=== PATIENT | male | born 1940 | race Caucasian/White ===

== ENCOUNTER → 2016-12-07 | Outpatient (CLI) | payer MEDICARE, BC ==
--- NOTE | 2016-12-07 11:57 | MR ---
MRI of the brain with and without contrast HISTORY: Headaches. TECHNIQUE: T1-weighted sagittal, T2, FLAIR, and diffusion axial, postcontrast T1 axial and coronal vi ews of the brain are submitted. CONTRAST: 18 mL MultiHance FINDINGS: Craniocervical junction maintained. There is a partially empty sella turcica. Confluent and diffuse areas of abnormal signal throughout t he white matter are noted bilaterally. Findings are nonspecific but most likely in the basis of remot e microvascular ischemia. No enhancing mass or mass effect. There appears to be an area of increased signal involving the corpus callosum posteriorly adjacent to the atrium of the right lateral ventricle. No enhancing mass or evidence of enhancement. No mass eff ect upon the adjacent atrium. This could been the basis of a subacute to chronic area of ischemia. Ventricular system dilation is greater centrally which raises the possibility of normal pressure hydr ocephalus. IMPRESSION: 1. There is an area of intermediate increased signal within the splenium of the corpus callosum on th e right suggestive of an area subacute to chronic infarct. No enhancing mass or enhancement of the re gion. Neoplasm felt less likely given the lack of enhancement. 2. Extensive nonspecific white matter changes and degenerative changes. Findings are felt to be most typical remote microvascular ischemia. Greater central dilation suggests the possibility of normal pr essure hydrocephalus. Correlate clinically. 3. Rounded area of abnormal signal measuring 1.8 cm right frontoparietal parietal junction with some degree of blooming artifact on the T2 axial suggest possible area of previous infarct or hemorrhagic infarct. Small arachnoid cyst would be less likely consideration. A Yellow message has been communicated to Mauro Cannon DO via the [employer] Critical Result system on 12/07/2016 11:53 AM, Message ID [id number].
== END | disposition home or self-care (01) ==
LOC: RADMRIMAIN 09:04
PROVIDERS: ATTEND Psychiatry & Neurology Neurology
DX: G91.8 Other hydrocephalus (principal); R41.3 Other amnesia; R27.0 Ataxia, unspecified
CPT/HCPCS: 70553; A9577

== ENCOUNTER → 2016-12-08 | Outpatient (CLI) | payer MEDICARE, BC ==
--- NOTE | 2016-12-08 15:58 | MR ---
EXAMINATION TYPE: MR angio head wo/neck wo/w con DATE OF EXAM: 12/08/2016 3:18 PM COMPARISON: NONE HISTORY: Acute/subacute cerebral infarction right hemisphere rule out stenosis per order. Symptoms of lightheadedness, unsteady gait, and ataxia per patient. History of coronary artery disease. TECHNIQUE: Time of flight images focusing on the [place] were performed without contrast.. 2-D and 3-D postprocessing imaging is performed. Multiplanar, multisequence imaging of the neck is pe rformed without and with IV contrast. Patient is injected with 20 cc of MultiHance for the exam. Post processing is performed. FINDINGS: MRA images show normal three-vessel origin from the aortic arch. Slight tortuous course to the right brachiocephalic artery is noted. Right common carotid artery shows normal origin from the r ight brachiocephalic artery. There is patent external carotid artery seen without significant stenosi s. There is no significant stenosis in visualized portion of right common or internal carotid arterie s including at level of right carotid bulb. Mild plaque at right carotid bulb extends into proximal i nternal carotid artery. There is no significant stenosis in visualized portion of left common carotid artery. Left external c arotid artery is patent without significant stenosis. No significant plaque or stenosis at left carot id bulb is identified. No significant stenosis in the left internal carotid artery is seen. MRA [place] images show slightly dominant left vertebral artery. There is no significant foc al stenosis or aneurysmal change in the posterior circulation. There is a small caliber but patent le ft-sided posterior communicating artery. There is hypoplastic right sided posterior communicating art isela identified. Images of the anterior circulation show no significant focal stenosis or aneurysmal change. Hypoplast ic anterior communicating artery is noted. There is prominent extra-axial fluid collection anterior left middle cranial fossa could reflect smal l arachnoid cyst or asymmetric temporal lobe atrophy on axial image 38 series 201 confirmed on MRI im age 7 series 411 day earlier. There is ventricular prominence consistent with diffuse cerebral atroph y. A normal pressure hydrocephalus is not excluded. Finding is similar to MRI one day earlier. IMPRESSION: 1. No aneurysmal change at the level of the [place]. 2. No significant focal stenosis in common or internal carotid arteries bilaterally.
== END ==
LOC: RADMRIMAIN 13:43
PROVIDERS: ATTEND Psychiatry & Neurology Neurology
DX: R41.3 Other amnesia (principal); R27.0 Ataxia, unspecified
CPT/HCPCS: 70544; 70549; A9577

== ENCOUNTER 2017-12-28 06:21 | Day surgery (SDC) | payer MEDICARE, BC ==
[2017-12-24 14:12] VITALS: BMI 21.5
[~2017-12-28 06:21] MED LIST: ALPRAZolam 0.25 MG TAB PO PRN; ALPRAZolam 0.5 MG TAB PO PRN; ASPIRIN 325 MG TAB PO STA; ATORVASTATIN 80 MG TAB PO STA; NITROGLYCERIN SL TABS 0.4 MG TAB SUBLINGUAL PRN; SODIUM CHLORIDE 0.9% 1,000 ML in EMPTY BAG 1 BAG IV ONE
[2017-12-28] MEDS ORDERED: ASPIRIN 81 MG ONE (06:42)
[2017-12-28 07:02] LABS: Glucose,Whole Blood 145 mg/dL (75-99)
[2017-12-28] MEDS ORDERED: LIDOCAINE 2% INJ 20 MG/ML (20 ML MDV) ONE (07:24)
[2017-12-28] MEDS ORDERED: VERAPAMIL 2.5 MG/ML 2 ML AMP ONE (07:24)
[2017-12-28 07:34] LABS: Basophils % (A) 1 %; Eosinophils # (A) 0.1 k/uL (0-0.7); Eosinophils % (A) 2 %; HCT 41.9 % (39.0-53.0); HGB 14.1 gm/dL (13.0-17.5); Lymphocytes # (A) 1.4 k/uL (1.0-4.8); Lymphocytes % (A) 21 %; MCH 32.3 pg (25.0-35.0); MCHC 33.7 g/dL (31.0-37.0); MCV 95.7 fL (80.0-100.0); Mean Platelet Volume 7.6; Monocytes # (A) 0.4 k/uL (0-1.0); Monocytes % (A) 6 %; Neutrophils # (A) 4.6 k/uL (1.3-7.7); Neutrophils % (A) 69 %; Platelet Count 204 k/uL (150-450); RBC 4.37 m/uL (4.30-5.90); RDW 12.4 % (11.5-15.5); WBC 6.6 k/uL (3.8-10.6)
[2017-12-28 07:39] LABS: Anion Gap 11 mmol/L; Blood Urea Nitrogen 21 mg/dL (9-20); Calcium 9.6 mg/dL (8.4-10.2); Carbon Dioxide 29 mmol/L (22-30); Chloride 104 mmol/L (98-107); Glucose 147 mg/dL (74-99); Potassium 4.2 mmol/L (3.5-5.1); Sodium 144 mmol/L (137-145)
[2017-12-28] MEDS ORDERED: diphenhydrAMINE 50 MG/ML 1 ML VIAL ONE ×2 (07:39→17:50)
[2017-12-28] MEDS ORDERED: diphenhydrAMINE 50 MG/ML 1 ML VIAL IVP ONE ×2 (07:42→17:51)
[2017-12-28] MEDS ORDERED: LIDOCAINE 2% INJ 20 MG/ML SQ ONE ×2 (07:43→17:53)
[2017-12-28] MEDS ORDERED: VERAPAMIL SYRINGE (5 MG/10 ML) INTRAARTER ONE (07:46)
[2017-12-28] MEDS ORDERED: HEPARIN SODIUM 1,000 UN/ML (10ML VL) ONE (07:55)
[2017-12-28] MEDS ORDERED: HEPARIN SODIUM 1,000 UN/ML (10ML VL) IV ONE (07:56)
[2017-12-28] MEDS ORDERED: BIVALIRUDIN 250 MG in SODIUM CHLORIDE 0.9% 50 ML IV ONE (08:04)
[2017-12-28] MEDS ORDERED: BIVALIRUDIN BOLUS 250 MG/50 ML IV ONE (08:04)
[2017-12-28] MEDS ORDERED: IOPAMIDOL-370 100ML BTL INJ ONE ×3 (08:19→18:07)
[2017-12-28] MEDS ORDERED: NITROGLYCERIN 1000MCG/10ML SYRINGE INTRACORON ONE (09:02)
[2017-12-28] MEDS ORDERED: CLOPIDOGREL 75 MG TAB ONE (09:05)
[2017-12-28] MEDS ORDERED: CLOPIDOGREL 75 MG TAB PO ONE (09:12)
[2017-12-28] MEDS ORDERED: ATROPINE SULFATE 0.1 MG/ML 10ML SYRINGE IV PRN (09:17)
[2017-12-28] MEDS ORDERED: MAG HYDROX/AL HYDROX/SIMETH 30 ML CUP PO PRN (09:17)
[2017-12-28] MEDS ORDERED: ZOLPIDEM 5 MG TAB PO PRN (09:17)
[2017-12-28] MEDS ORDERED: RX INFO: IV CONTRAST WAS GIVEN 1 EACH MISC MISCELLANE PRN (09:17)
[2017-12-28] MEDS ORDERED: amLODIPine 5 MG TAB PO STA (10:48)
[2017-12-28] MEDS ORDERED: MORPHINE SULFATE 4 MG/ML SYRINGE IVP STA ×4 (10:49→16:57)
[2017-12-28 11:05] LABS: Glucose,Whole Blood 183 mg/dL (75-99)
[2017-12-28] MEDS: SODIUM CHLORIDE 0.9% 1,000 ML IV SCH ×2 (13:24→22:46)
[2017-12-28] MEDS ORDERED: MORPHINE SULFATE/PF 10MG/10ML VL IVP PRN (14:33)
[2017-12-28] MEDS: NITROGLYCERIN SL TABS 0.4 MG TAB SUBLINGUAL PRN ×3 (15:41→15:53)
[2017-12-28 16:38] LABS: Glucose,Whole Blood 179 mg/dL (75-99)
[2017-12-28] MEDS: GLIMEPIRIDE 2 MG TAB PO SCH (17:01)
--- NOTE | 2017-12-28 17:16 | CC ---
CARDIAC CATHETERIZATION REPORT DATE OF SERVICE: 12/28/2017. PROCEDURES: 1. Coronary angiography. 2. Percutaneous transluminal coronary angioplasty and stenting of superdominant right coronary artery in multiple areas with drug-eluting stents. PERFORMED BY: Dr. Ryann Grossman. Moderate conscious sedation time 1 hour 25 minutes. CLINICAL INFORMATION: Mr. 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 He had stenting of proximal/mid circumflex performed in 1999 in [place]. Additionally I performed stenting of proximal and mid RCA in 2000 with bare metal stents. He has been having symptoms of angina with exertional shortness of breath and a recent stress test revealed that there was evidence of IL with a moderate area of brent-infarct ischemia suggestive of progression of disease, and therefore he was advised repeat cardiac catheterization. Risks, benefits, options and rationale were explained to the patient and family, including his daughter. PROCEDURE NOTE: Under local anesthesia and strict aseptic precautions, a 6-Burkinan introducer was placed in the right radial artery. Using an Ultimate 1 catheter, I performed selective coronary angiography of the right coronary artery, and then a standard left Nishant catheter was used to perform selective coronary angiography of the left system. I noted that there was a moderate progression in the LAD of up to nearly 50% to 55%, but more importantly RCA at the distal stent had a 90% stenosis with multiple areas of narrowing beyond that as well, and there were collaterals coming from the left system filling the branches of RCA. I recommended intervention of the RCA that was performed in the same setting. Left ventriculogram was not performed and LV pressures were not checked. CORONARY ANGIOGRAPHY FINDINGS: RIGHT CORONARY ARTERY: Superdominant vessel has areas of stenting in the proximal and mid portion. The mid stent has in the distal half restenosis of 90% in between the 2 stented areas. There is an area of 70% narrowing and distally the flow is sluggish, suggestive of very limited antegrade flow. LEFT MAIN CORONARY ARTERY: This is a patent, disease-free vessel that bifurcates into LAD and circumflex. LEFT ANTERIOR DESCENDING CORONARY ARTERY: This vessel has a mid portion that has disease of nearly 50% in long area of disease, and 2 diagonal branches come off which have moderate disease, but LAD beyond the diseased segment is widely patent and has brisk flow all the way distally. Mid LAD therefore has a 50% narrowing and a calcified area. LEFT POSTERIOR CIRCUMFLEX CORONARY ARTERY: Technically a nondominant vessel gives off a large obtuse marginal that is patent, but the distal circumflex which continues as the PLV branch is subtotally occluded, and also there are collaterals going to the right system. The circumflex system is unchanged. LAD represents some progression of disease. FINAL IMPRESSION: This patient has a restenotic lesion in the distal stent of RCA as well as distal to it there are multiple areas of narrowing noted. Circumflex angiographically is unchanged with a subtotal distal circumflex that continues as a PLV branch. LAD has progression of disease with a 50% mid lesion. RECOMMENDATION: I recommended PCI of RCA and performed this in the same setting. PCI PROCEDURE DETAILS: I used an Allright 3.5 catheter to cannulate the right coronary artery. A run-through wire was used and wire was kept distally. I performed multiple dilatations using a 3.0 caliber NC Trek balloon. I then deployed multiple drug-eluting stents within the previously placed distal stent and also beyond it and between the 2 stents. I used a 3.0 caliber stent between the 2 stent because it was of acute bend, and distal to it I used a 3.5 caliber stent. A total of 6 drug-eluting stents was used. Excellent angiographic result was achieved without complication. I had difficulty advancing the stents and I therefore double-wired using a combination of a Whisper wire as well as a run-through wire. I used the Whisper as the anchor wire, and the run-through was the wire over which I advanced the stents. Initial wire I used was actually a Whisper, not a run-through wire. Excellent angiographic result was achieved with remarkably improved distal flow. The distal branches, however, had diffuse disease in it and there was also some collateralization coming from the left system as well. Patient received Angiomax bolus and infusion and 300 mg of Plavix were given orally. Excellent angiographic result without complication was achieved. The sheath was taken out and a TR band applied as per protocol with saturation in the fingers of the right hand of 95%. Results were discussed with the patient and several family members, including daughter and son-in-law. Patient will be discharged tomorrow if he remains stable. MMODL / IJN: [id number] /
--- NOTE | 2017-12-28 17:19 | LTR ---
December 28, 2017 To: Dr. Yossi Gruber Re: Laz Almanza (1940) Dear Dr. Gruber, Thank for the opportunity to participate in the care of Mr. Almanza. Please find enclosed my detailed cardiac cath report and PCI report. I am pleased to report to you that his RCA was stented with multiple drug-eluting stents, and he should be on dual antiplatelet therapy without interruption for at least a year. I expect he will be discharged tomorrow if he remains stable. Thank you for your referral. Please call for questions. With kindest regards. Sincerely, Ehsan Grossman MD MMHAYDENL / GABIN: [id number] /
[2017-12-28 17:36] VITALS: RESP 18
[2017-12-28] MEDS ORDERED: IV FLUID CONTINUATION 1,000 ML IV ONE (17:44)
[2017-12-28] MEDS ORDERED: MORPHINE SULFATE 4 MG/ML SYRINGE ONE (18:09)
[2017-12-28] MEDS ORDERED: MORPHINE SULFATE 4 MG/ML SYRINGE IV ONE (18:11)
--- NOTE | 2017-12-28 19:40 | CC ---
CARDIAC CATHETERIZATION REPORT DATE OF SERVICE: 12/28/2017 PROCEDURE: Coronary angiography. PERFORMED BY: Dr. Ryann Grossman. ANESTHESIA: Moderate conscious sedation time 24 minutes. CLINICAL INFORMATION: Mr. Almanza is a 77-year-old gentleman with history of hypertension, diabetes, hyperlipidemia, previous VA, known subtotal occlusion of PLV branch of circumflex and also distal RCA. Proximal and mid RCA were subtotally occluded within previous stents. This morning I performed stenting of RCA with multiple drug-eluting stents. He has been having chest pain on the floor, complaining of chest discomforts, diaphoresis without clear-cut EKG changes, which were persistent and ongoing episodes of chest pain, and therefore I brought him down for cardiac catheterization. PROCEDURE NOTE: Under local anesthesia and strict aseptic precautions, a 6-Cambodian introducer was placed in the right femoral artery. Using standard Nishant catheters I performed coronary angiography and noted that the RCA was widely patent without any change in the left system in terms of the extent of disease. I then took the catheters out and used a Perclose device to secure hemostasis. The patient was sent to the room in stable condition. Findings were discussed with the patient and his daughter. He was reassured that there is no significant disease and we will pursue medical therapy and possible discharge tomorrow. CORONARY ANGIOGRAPHY FINDINGS: RIGHT CORONARY ARTERY: Dominant vessel, widely patent at the site of previous stenting. Distally it is subtotally occluded with collaterals coming from the distal system, but it opacifies smaller branches, including a small PLV and PDA branch, but there is a chronic lesion before that which was also seen in 2000. Compared to this morning's angiogram, there is no significant change, if any. The flow is much more brisk and better. LEFT MAIN CORONARY ARTERY: Long, patent, disease-free vessel. LEFT ANTERIOR DESCENDING CORONARY ARTERY: This vessel has a 50% mid lesion with 2 diagonal branches. Distally caliber improves and runs all the way to the apex. LEFT POSTERIOR CIRCUMFLEX CORONARY ARTERY: Technically nondominant vessel. Gives off a good-sized obtuse marginal. Proximally there is a stented segment, widely patent. Continuation of circumflex which continues as a PLV branch is subtotally occluded and also provides collaterals to the distal branch of the RCA. The findings are unchanged from this morning's angiogram. FINDINGS: RCA is widely patent at the site of previous stenting with distal disease, which is not new. The distal circumflex is totally occluded, which continues as a PLV branch , and these findings are not new. The previously stented circumflex marginal is unchanged. LAD has a 50% unchanged lesion. RECOMMENDATION: Findings were discussed with the patient and family. We will pursue medical therapy and discharge the patient tomorrow. MMLOS / GABIN: [id number] / MTDD
[2017-12-28 20:45] LABS: Glucose,Whole Blood 223 mg/dL (75-99)
[2017-12-28] MEDS ORDERED: ATORVASTATIN 80 MG TAB PO SCH (21:00)
[2017-12-28] MEDS: ATENOLOL 50 MG TAB PO SCH (22:45)
[2017-12-29 06:02] LABS: Glucose,Whole Blood 103 mg/dL (75-99)
[2017-12-29 06:20] LABS: Basophils % (A) 1 %; Eosinophils # (A) 0.1 k/uL (0-0.7); Eosinophils % (A) 1 %; HCT 39.3 % (39.0-53.0); Lymphocytes # (A) 1.3 k/uL (1.0-4.8); Lymphocytes % (A) 18 %; MCH 31.5 pg (25.0-35.0); MCHC 32.9 g/dL (31.0-37.0); MCV 95.6 fL (80.0-100.0); Mean Platelet Volume 7.5; Monocytes # (A) 0.5 k/uL (0-1.0); Monocytes % (A) 7 %; Neutrophils # (A) 5.4 k/uL (1.3-7.7); Neutrophils % (A) 72 %; Platelet Count 183 k/uL (150-450); RBC 4.11 m/uL (4.30-5.90); RDW 12.4 % (11.5-15.5); WBC 7.5 k/uL (3.8-10.6)
[2017-12-29 06:28] LABS: Calcium 9.2 mg/dL (8.4-10.2); Potassium 4.1 mmol/L (3.5-5.1)
[2017-12-29] MEDS: ATENOLOL 50 MG TAB PO SCH (07:57)
[2017-12-29] MEDS: GLIMEPIRIDE 2 MG TAB PO SCH (07:57)
[2017-12-29 08:10] VITALS: BP 130/63; PULSE 63; TEMP 97.2
[2017-12-29] MEDS ORDERED: LISINOPRIL 10 MG TAB PO SCH (09:00)
[2017-12-29] MEDS ORDERED: CLOPIDOGREL 75 MG TAB PO SCH ×2 (09:00)
[2017-12-29] MEDS ORDERED: ASPIRIN 81 MG PO SCH ×2 (09:00)
[2017-12-29] MEDS ORDERED: CITALOPRAM HYDROBROMIDE 20 MG TAB PO SCH (09:00)
--- NOTE | 2017-12-29 09:41 | DS ---
DISCHARGE SUMMARY DATE OF ADMISSION: 12/28/2017 DATE OF DISCHARGE: 12/29/2017. PROCEDURES PERFORMED: Coronary angiography and PTCA and stenting of a very dominant RCA in multiple areas with drug-eluting stents. A repeat cardiac coronary angiography was performed late yesterday because of chest pain, which revealed that the vessels were widely patent. Please refer to the detailed cardiac cath report for further information. Mr. Almanza had a very uneventful night. He rested comfortably. He got up to go to the bathroom on his own. He kind of slouched down, but did not hurt himself. This morning, he is virtually asymptomatic. EKG revealed sinus mechanism with old inferior CO. No new changes. His vital signs are stable with blood pressure 130/80, pulse rate is 70 per minute. S1, S2 heard normally. Short systolic murmur noted. Lungs are clear. Abdomen and lower extremity exam unchanged. The right radial cath site is clean and dry and the right femoral cath site is clean and dry. Good pulses are noted. EKG is unremarkable. Labs were reviewed and there were no concerns. The patient will be discharged later on today and I will see him on Wednesday at 10:45 a.m. Discharge instructions regarding activity, diet and medications were given. MMODL / IJN: [id number] /
[2017-12-29 11:17] LABS: Glucose,Whole Blood 122 mg/dL (75-99)
[2017-12-29] MEDS ORDERED: VIT A,C & E-LUTEIN-MINERALS 1 EACH TAB PO SCH (12:00)
== END 2017-12-29 12:51 | disposition home or self-care (01) ==
LOC: CATHCVL 06:21 → 6SEL 10:27 → CATHCVL 12-29 12:51
PROVIDERS: ATTEND Internal Medicine Interventional Cardiology
DX: I25.10 Atherosclerotic heart disease of native coronary artery without angina pectoris (principal); T82.855A Stenosis of coronary artery stent, initial encounter; I10 Essential (primary) hypertension; E11.9 Type 2 diabetes mellitus without complications; E78.5 Hyperlipidemia, unspecified; I25.2 Old myocardial infarction; R07.9 Chest pain, unspecified; Z95.5 Presence of coronary angioplasty implant and graft; Z86.73 Personal history of transient ischemic attack (TIA), and cerebral infarction without residual deficits; Z79.84 Long term (current) use of oral hypoglycemic drugs; Z79.02 Long term (current) use of antithrombotics/antiplatelets; Z79.82 Long term (current) use of aspirin; Z79.899 Other long term (current) drug therapy; Z88.5 Allergy status to narcotic agent; Z88.0 Allergy status to penicillin; Z88.8 Allergy status to other drugs, medicaments and biological substances
CPT/HCPCS: 94760; 93454; 80048 ×2; 85025 ×2; C9600; C1769 ×4; C1887; C1725 ×2; C1894 ×2; C1874; C1760; J2001; J2270; J1200; J1644; J0583; Q9967

== ENCOUNTER 2022-02-04 07:56 | Day surgery (SDC) | payer MEDICARE, BC ==
[2022-02-02 16:20] VITALS: BMI 26.6
[~2022-02-04 07:56] MED LIST changes: -ALPRAZolam 0.25 MG TAB PO PRN; -ALPRAZolam 0.5 MG TAB PO PRN; -ASPIRIN 325 MG TAB PO STA; -ATORVASTATIN 80 MG TAB PO STA; +CYCLOPENTOLATE 1% OPHTH SOLN 2 ML BTL OP PRN; +LACTATED RINGERS 1,000 ML IV SCH; +MOXIFLOXACIN HCL 0.5% DROPS 3 ML BTL OP PRN; -NITROGLYCERIN SL TABS 0.4 MG TAB SUBLINGUAL PRN; +PHENYLEPHRINE 2.5% OPHTH DRP 2ML OP PRN; -SODIUM CHLORIDE 0.9% 1,000 ML in EMPTY BAG 1 BAG IV ONE; +TETRACAINE 0.5% OPHTH (PF) DROPS 4 ML BTL OP PRN; +TIMOLOL 0.5% OPHTH DROPS 5 ML BTL OP PRN
[2022-02-04 08:34] VITALS: TEMP 97.2
[2022-02-04] MEDS ORDERED: LIDOCAINE 1% (10MG/ML) FOR IV START INTRADERMA ONE (08:53)
[2022-02-04 08:57] LABS: Glucose,Whole Blood 98 mg/dL (70-110)
[2022-02-04] MEDS ORDERED: BALANCED SALT IRRIG SOLN COMB2 15 ML IRRIG.SOLN IRRIGATION ONE (09:51)
[2022-02-04] MEDS ORDERED: LIDOCAINE 1% (PF) 10MG/ML VIAL MISCELLANE ONE (09:52)
[2022-02-04] MEDS ORDERED: DUOVISC KIT (GREEN BOX) INTRAOCULA ONE (09:52)
[2022-02-04] MEDS ORDERED: MIDAZOLAM 2 MG/2 ML VIAL ONE (09:53)
[2022-02-04] MEDS ORDERED: fentaNYL (PF) 50 MCG/ML 2 ML AMP ONE (09:53)
[2022-02-04] MEDS ORDERED: EPINEPHrine (PF) 0.3 ML in BALANCED SALT IRRIG SOLN COMB2 500 ML IRRIGATION ONE (09:58)
--- NOTE | 2022-02-04 10:22 | P.OP ---
Date of Procedure: 02/04/22 Preoperative Diagnosis: NX & CS Procedure(s) Performed: same Implants: [id number] 21.00 Anesthesia: MAC Surgeon: Gregor Mirza Pathology: none sent Condition: stable Disposition: same day Indications for Procedure: blurry vision Operative Findings: no complications
[2022-02-04 10:28] VITALS: PULSE 53
[2022-02-04 10:44] VITALS: BP 158/80; RESP 16
--- NOTE | 2022-02-04 22:29 | OP ---
OPERATIVE REPORT DATE OF SERVICE: February 04, 2022. PROCEDURES: Phacoemulsification of cataract and intraocular lens implant of the right eye. 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 POSTOPERATIVE DIAGNOSIS: Nuclear sclerosis. Cortical sclerosis. OPERATION: Clear cornea phacoemulsification of cataract right OD/ eye. SURGEON: Dr. Gregor Mirza. ESTIMATED BLOOD LOSS: Zero. SPECIMEN TAKEN: None. NARRATIVE: After obtaining the appropriate consent, the patient was brought to the Operating Room where the patient was placed under cardiac monitoring and prepped and draped in the usual sterile manner. At the 11 o'clock position a 15 degree super sharp blade was used to create a paracentesis followed by instillation of 1% Xylocaine MPF 50:50 mix with BSS into the anterior chamber. This was followed by Duovisc to stabilize the anterior chamber. At the 9 o'clock position a self-sealing corneal flap incision was created using 2.8 mm arabella keratome. A cystotome was used to initiate a continuous tear capsulorrhexis which was completed with the Utrata forceps. A Binkhorst cannula was used to hydrodissect the lens nucleus followed by hydrodelineation. Phacoemulsification of the lens was performed utilizing phacochop in 37.14 seconds at 25% power. The remaining cortical material was removed using the irrigation aspiration mode followed by additional 1% Xylocaine MPF into the anterior chamber followed by viscoelastic to stabilize the capsular bag. A [employer]ch [employer] Lomb MX 60E 21.0 diopter posterior chamber lens was placed into the capsular bag without difficulty. The remaining viscoelastic material was removed from the anterior chamber with the irrigation/aspiration. Balanced salt solution was used to normalize the intraocular pressure. The incision was checked for watertight integrity. The patient then received two drops of 0.5% timolol followed by two drops Vigamox, was lightly patched and shielded in the usual manner. There were no complications from the procedure. The patient tolerated the procedure well and was returned to recovery in good condition. MMODL / IJN: [id number] /
== END 2022-02-04 11:11 | disposition home or self-care (01) ==
LOC: OR 07:56
PROVIDERS: ATTEND Ophthalmology
DX: H25.11 Age-related nuclear cataract, right eye (principal); H25.011 Cortical age-related cataract, right eye; H35.3132 Nonexudative age-related macular degeneration, bilateral, intermediate dry stage; H00.026 Hordeolum internum left eye, unspecified eyelid; H00.023 Hordeolum internum right eye, unspecified eyelid; E11.36 Type 2 diabetes mellitus with diabetic cataract; I25.10 Atherosclerotic heart disease of native coronary artery without angina pectoris; I10 Essential (primary) hypertension; E78.5 Hyperlipidemia, unspecified; I25.2 Old myocardial infarction; F41.9 Anxiety disorder, unspecified; M19.90 Unspecified osteoarthritis, unspecified site; Z86.73 Personal history of transient ischemic attack (TIA), and cerebral infarction without residual deficits; Z79.02 Long term (current) use of antithrombotics/antiplatelets; Z79.82 Long term (current) use of aspirin; Z79.84 Long term (current) use of oral hypoglycemic drugs; Z79.899 Other long term (current) drug therapy; Z88.1 Allergy status to other antibiotic agents; Z88.0 Allergy status to penicillin; Z95.5 Presence of coronary angioplasty implant and graft; Z97.2 Presence of dental prosthetic device (complete) (partial); Z98.890 Other specified postprocedural states; Z98.1 Arthrodesis status; Z87.442 Personal history of urinary calculi
CPT/HCPCS: 66984; C1780; J2250; J0171; J3010; J2001

== ENCOUNTER 2022-03-11 08:11 | Day surgery (SDC) | payer MEDICARE, BC ==
[~2022-03-11 08:11] MED LIST changes: +LIDOCAINE 1% (10MG/ML) FOR IV START INTRADERMA PRN
[2022-03-11 08:35] VITALS: TEMP 97.9
[2022-03-11 08:59] LABS: Glucose,Whole Blood 100 mg/dL (70-110)
[2022-03-11] MEDS ORDERED: HYALURONATE SODIUM INTRAOCULAR 1 EACH SYRINGE (12MG/ML) INTRAOCULA ONE ×2 (10:29→10:30)
[2022-03-11] MEDS ORDERED: fentaNYL (PF) 50 MCG/ML 2 ML AMP ONE (10:29)
[2022-03-11] MEDS ORDERED: MIDAZOLAM 2 MG/2 ML VIAL ONE (10:29)
[2022-03-11] MEDS ORDERED: BALANCED SALT IRRIG SOLN COMB2 15 ML IRRIG.SOLN IRRIGATION ONE (10:29)
[2022-03-11] MEDS ORDERED: MOXIFLOXACIN HCL 0.5% DROPS 3 ML BTL LEFT EYE ONE (10:30)
[2022-03-11] MEDS ORDERED: TIMOLOL 0.5% OPHTH DROPS 5 ML BTL LEFT EYE ONE (10:31)
--- NOTE | 2022-03-11 11:02 | P.OP ---
Date of Procedure: 03/11/22 Preoperative Diagnosis: NS & CS Postoperative Diagnosis: same Procedure(s) Performed: PIOL< OS Implants: MX60E 21.00 Anesthesia: MAC Surgeon: Gregor Mirza Pathology: none sent Condition: stable Disposition: same day Indications for Procedure: blurry vision Operative Findings: no complications
[2022-03-11 11:25] VITALS: BP 155/78; PULSE 53; RESP 20
--- NOTE | 2022-03-12 10:27 | OP ---
OPERATIVE REPORT DATE OF SURGERY: 03/11/2022 SURGEON: Dr. Gregor Mirza. PREOPERATIVE DIAGNOSES: Nuclear sclerosis. Cortical sclerosis. POSTOPERATIVE DIAGNOSES: Nuclear sclerosis. Cortical sclerosis. OPERATION: Clear cornea phacoemulsification of cataract left/OS eye. ESTIMATED BLOOD LOSS: Zero. SPECIMEN TAKEN: None. NARRATIVE: After obtaining the appropriate consent, the patient was brought to the Operating Room where the patient was placed under cardiac monitoring and prepped and draped in the usual sterile manner. At the 5 o'clock position a 15 degree super sharp blade was used to create a paracentesis followed by instillation of 1% Xylocaine MPF 50:50 mix with BSS into the anterior chamber. This was followed by Amvisc to stabilize the anterior chamber. At the 3 o'clock position a self-sealing corneal flap incision was created using 2.8 mm arabella keratome. A cystotome was used to initiate a continuous tear capsulorrhexis which was completed with the Utrata forceps. A Binkhorst cannula was used to hydrodissect the lens nucleus followed by hydrodelineation. Phacoemulsification of the lens was performed utilizing phaco-chop in 24.45 seconds at 25% power. The remaining cortical material was removed using the irrigation aspiration mode followed by additional 1% Xylocaine MPF into the anterior chamber followed by viscoelastic to stabilize the capsular bag. A [employer]ch [employer] Lomb MX 60E 21.0 diopter posterior chamber lens was placed into the capsular bag without difficulty. The remaining viscoelastic material was removed from the anterior chamber with the irrigation/aspiration. Balanced salt solution was used to normalize the intraocular pressure. The incision was checked for watertight integrity. The patient then received two drops of 0.5% timolol followed by two drops Vigamox, was lightly patched and shielded in the usual manner. There were no complications from the procedure. The patient tolerated the procedure well and was returned to recovery in good condition. MMODL / IJN: [id number] /
== END 2022-03-11 11:42 | disposition home or self-care (01) ==
LOC: OR 08:11
PROVIDERS: ATTEND Ophthalmology
DX: E11.36 Type 2 diabetes mellitus with diabetic cataract (principal); H25.12 Age-related nuclear cataract, left eye; H25.012 Cortical age-related cataract, left eye; H35.3132 Nonexudative age-related macular degeneration, bilateral, intermediate dry stage; Z98.41 Cataract extraction status, right eye; Z96.1 Presence of intraocular lens; I11.9 Hypertensive heart disease without heart failure; I25.2 Old myocardial infarction; E78.00 Pure hypercholesterolemia, unspecified; Z86.73 Personal history of transient ischemic attack (TIA), and cerebral infarction without residual deficits; Z95.5 Presence of coronary angioplasty implant and graft; M19.90 Unspecified osteoarthritis, unspecified site; Z79.84 Long term (current) use of oral hypoglycemic drugs; Z79.899 Other long term (current) drug therapy; Z79.01 Long term (current) use of anticoagulants; Z79.82 Long term (current) use of aspirin; F41.9 Anxiety disorder, unspecified; I70.90 Unspecified atherosclerosis; E11.69 Type 2 diabetes mellitus with other specified complication; E78.5 Hyperlipidemia, unspecified; F03.90 Unspecified dementia, unspecified severity, without behavioral disturbance, psychotic disturbance, mood disturbance, and anxiety; Z88.0 Allergy status to penicillin; Z88.1 Allergy status to other antibiotic agents; Z88.3 Allergy status to other anti-infective agents; Z80.0 Family history of malignant neoplasm of digestive organs
CPT/HCPCS: 66984; C1780; J2250; J3010